=== PATIENT | female | born 1935 | race Caucasian/White ===

== ENCOUNTER 2016-11-08 19:18 | Emergency (ER) | payer OTHER ==
[~2016-11-08 19:18] MED LIST: CALCIUM + D 6001 TAB PO; CLEOCIN HCL150 MG PO; FISH OIL500 MG PO; GLYBURIDE2.5 MG PO; LEVOTHYROXINE0.1 M1 PO; LOSARTAN/HCTZ 100/25; MACROBID 100 M100 MG PO; METFORMIN HYD1000 MG PO; PYRIDIUM200 M1 PO; TYLENOL #31 TAB PO
--- NOTE | 2016-11-08 20:19 | ED UPPER/LOWER EXTREMITY COMPL ---
History of Present Illness General Chief Complaint: Upper Extremity Injury Stated Complaint: BILATERIAL ARM PAIN, S/P FALL 11/05 Source: patient, family Exam Limitations: no limitations Vital Signs & Intake/Output Vital Signs & Intake/Output Vital Signs Date Time Temp Pulse Resp B/P Pulse O2 O2 Flow FiO2 Ox Delivery Rate 11/08 2213 97.2 84 18 180/72 98 Room Air Room Air 11/09 1955 97.0 86 22 190/73 97 ED Intake and Output 11/09 0000 11/08 1200 Intake Total Output Total Balance Patient 183 lb Weight Allergies Coded Allergies: Penicillins (RASH 05/10/16) Sulfa (Sulfonamide Antibiotics) (RASH 05/10/16) Reconcile Medications Calcium/Vitamin D (Calcium + D) 600 MG/200 IU TAB 1 TAB PO BID VITAMIN ( Reported) Glyburide 5 MG TABLET 5 MG PO DAILY SUGAR (Reported) Levothyroxine Sodium 0.1 MG TAB 0.1 MG PO DAILY THYROID (Reported) [LOSARTAN/HCTZ 100/25] (Reported) METFORMIN HCL (Metformin Hydrochloride) 1,000 MG TABLET 1,000 MG PO BID SUGAR (Reported) Nitrofurantoin Monohyd/M-Cryst (Macrobid 100 MG Capsule) 100 MG CAPSULE 1 CAP PO BID cystitis with food Phenazopyridine HCl (Pyridium) 200 MG TABLET 1 TAB PO TID dysuria SALMON OIL/OMEGA-3 FATTY ACIDS (Fish Oil 500 MG Softgel) 500 MG-100 MG CAPSULE 1 TAB PO DAILY VITAMIN (Reported) Triage Note: PER PT GOT UP 0200 ON SUNDAY, FELL IN BR TOOK A LONG TIME FINALLY HAD TO CALL [facility] TO GET HELP GETTING UP, CALLED HE THOUGHT IT WAS A NEW MEDICINE I STARTED {ANTIBIOTIC} FOR SINUS INFECTION. EVERYTHING HURTS STILL DIZZY AND TODAY STARTED WITH A RASH. Triage Nurses Notes Reviewed? yes Onset: Abrupt Duration: day(s): (4) Timing: single episode today HPI: 81-year-old female presents with her daughter for chief complaint of left posterior rib pain, right wrist and hand pain after fall in the bathroom on Sunday morning. She states that she was going to the bathroom when she lost her balance and fell down onto her back. No head trauma or loss of conscious. She is usually fine and they came and lifted her up. She was not transferred to the hospital. This next [facility] and went to the [facility]. Since then she's been having some aches and pains and asked her daughter to bring her in for evaluation tonight. No headache or blurred vision. No change in mental status. No abdominal pain nausea or vomiting. She's been eating and drinking well. Incidentally patient noted to have diffuse rash to thorax which appears to be a drug rash. SHe is at the end of course of bactrim for a sinusitis. Past History Travel History Traveled to [place] past 21 day No Medical History Any Pertinent Medical History? see below for history Neurological: NONE EENT: NONE Cardiovascular: hypertension Respiratory: NONE Gastrointestinal: NONE Hepatic: NONE Renal: NONE Musculoskeletal: NONE Psychiatric: NONE Endocrine: diabetes, hypothyroidism Blood Disorders: NONE Surgical History Surgical History: non-contributory Psychosocial History What is your primary language Hebrew Tobacco Use: Never used Family History Hx Contributory? No Review of Systems Review of Systems Constitutional: Denies: chills, fever. EENTM: Reports: no symptoms. Respiratory: Denies: cough, short of breath. Cardiovascular: Denies: chest pain, palpitations. Gastrointestinal/Abdominal: Denies: abdominal pain. Genitourinary: Reports: no symptoms. Musculoskeletal: Reports: back pain, joint pain, joint swelling, muscle pain, muscle stiffness. Denies: neck pain. Skin: Reports: no symptoms. Neurological/Psychological: Denies: ataxia, confusion, numbness. Hematologic/Endocrine: Denies: bruising, bleeding. Immunological: Reports: no symptoms. All Other Systems: Reviewed and Negative Physical Exam Physical Exam General Appearance: well developed/nourished, alert, awake, mild distress Head: atraumatic Eyes: Bilateral: PERRL, EOMI. Ears, Nose, Throat: normal pharynx, normal ENT inspection, hearing grossly normal Neck: normal inspection, supple Cardiovascular/Respiratory: regular rate/rhythm Peripheral Pulses: 2+ radial (R), 2+ radial (L) Gastrointestinal: SOFT NONTNDER Back: normal inspection Shoulder Left: normal range of motion, normal inspection Shoulder Right: normal range of motion, normal inspection Elbow Left: normal range of motion, normal inspection Elbow Right: normal range of motion, normal inspection Hand Left: normal inspection, normal range of motion Hand Right: normal range of motion, swelling, 1st finger Leg Left: normal range of motion, normal inspection Leg Right: normal range of motion, normal inspection Hip Left: normal range of motion, normal inspection Hip Right: normal range of motion, normal inspection Neurologic/Tendon: normal sensation, normal motor functions, normal tendon functions Skin: intact, normal color, warm/dry, rash (MACULAR/LACY RASH TO THORAX) Lymphatic: no anterior cervical loida Diagram Shoulders Front/Back 1) TENDERNESS TO PALPATION NO BRUISING OR STEPOFF NO CREPITUS Hands Back 1) MILD SWELLING 2) mild swelling, no pain with axial loading Progress Differential Diagnosis: sprain, ICH, RIB FRACTURE, WRIST FX/SPRAIN, HAND FX, THUMB SPRAIN, PTX Plan of Care: Orders Procedure Date/time Status Durable Medical Equipment 11/08 2149 Active EKG 11/[address] HEAD ORDERED FROM TRIAGE. XRAYS, TYLENOL ORDERED. NO ACUTE FX ON XRAY. CT HEAD WNL. RIGHT HAND/WRIST SPLINT ORDERED. PATIENT STABLE FOR DISCHARGE HOME. REITERATED TO PATIENT AND DAUGHTER TO DISCONTINUE BACTRIM A RESULT OF DIFFUSE DRUG RASH. (DONNIE DUBOIS,REN) Diagnostic Imaging: Viewed by Me: Radiology Read, CT Scan. Discussed w/RAD: Radiology Read, CT Scan. Radiology Impression: PATIENT: TONYA SAAVEDRA PRESENT AGE: 81 PATIENT ACCOUNT NO: [id number] : 34 LOCATION: [facility] ORDERING PHYSICIAN: REN FIELDS MD SERVICE DATE: 11/08/16 EXAM TYPE: CAT - CT HEAD WO IV CONTRAST EXAMINATION: CT HEAD WITHOUT CONTRAST CLINICAL INFORMATION: Status post fall with dizziness. COMPARISON: CT brain 03/11/2011. TECHNIQUE: Contiguous axial imaging was performed from the skull base to vertex without intravenous administration of contrast. DLP: 600 mGy-cm FINDINGS: There is no evidence of acute intracranial hemorrhage or territorial infarction. No abnormal mass effect or midline shift is seen. Guillory to white matter differentiation is well preserved. No extra-axial fluid collections are identified. The lateral ventricles are enlarged with mild prominence of cortical sulci. There is a prominent septum cavum pellucidum. There is benign hyperostosis frontalis interna. The osseous structures and soft tissues are normal. There is mild mucoperiosteal thickening right posterior ethmoid sinus. IMPRESSION: No acute intracranial process seen. Suspect mild chronic inflammatory changes right posterior ethmoid sinus. DICTATED BY: VICK MD,VEENA DATE/TIME DICTATED:2037 DIRECTOR OF EXHIBIT DEVELOPMENT:WHITLEY DATE/TIME TRANSCRIBED:11/08/162037 CONFIDENTIAL, DO NOT COPY WITHOUT APPROPRIATE AUTHORIZATION. <Electronically signed in Other Vendor System> SIGNED BY: VEENA HICKMAN MD 11/08/162045, PATIENT: TONYA SAAVEDRA PRESENT AGE: 81 PATIENT ACCOUNT NO: [id number] : 34 LOCATION: [facility] ORDERING PHYSICIAN: REN FIELDS MD SERVICE DATE: 11/08/16 EXAM TYPE: RAD - XRY-HAND, RIGHT; XRY- RIBS UNILATERAL-LEFT; XRY-WRIST COMPLETE-RIGHT EXAMINATION: LEFT RIBS, RIGHT WRIST AND RIGHT HAND. CLINICAL INFORMATION: Status post fall on Sunday morning. Left chest pain. COMPARISON: None TECHNIQUE: Chest PA and 3 views left RIBS. 4 views right wrist. 3 views right hand. FINDINGS: CHEST AND LEFT RIBS: Both lungs are fairly well-expanded and clear of acute process. The heart size and pulmonary vascularity is normal. Multiple views of left ribs reveal no visible rib fracture. No bony abnormality noted. RIGHT WRIST: No visible acute fracture or dislocation seen. There is loss of joint space with periarticular spurring first carpometacarpal joint and scaphoid-trapezial joint. The soft tissues are normal. RIGHT HAND: There is no visible acute fracture or dislocation seen. There is periarticular marginal osteophytes PIP joint first through fifth digits with mild osteopenia. Loss of PIP and DIP joint space is present. No acute fracture seen. IMPRESSION: Unremarkable chest and left rib exam. Especially no left rib fracture seen. 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 There is no acute fracture or dislocation seen involving the right hand or the right wrist. DICTATED BY: VEENA HICKMAN MD DATE/TIME DICTATED:11/08/162135 DIRECTOR OF EXHIBIT DEVELOPMENT:WHITLEY DATE/ TIME TRANSCRIBED:11/08/162135 CONFIDENTIAL, DO NOT COPY WITHOUT APPROPRIATE AUTHORIZATION. <Electronically signed in Other Vendor System> SIGNED BY: VEENA HICKMAN MD 11/08/162144 Departure Departure Time of Disposition: 2149 Disposition: HOME OR SELF CARE Condition: Stable Clinical Impression Primary Impression: Contusion Secondary Impressions: Drug-induced skin rash, Sprained thumb Referrals: VINAYAK DUBOIS,RAJI Nolen (PCP/Family) Additional Instructions: Take tylenol as needed for pain. Follow up with your doctor in the office. Return as needed. Departure Forms: Customer Survey General Discharge Information Procedures Splinting Location: RIGHT HAND/WRIST SPLINT Splint Applied By: splint applied by other Pre-Proc Neuro Vasc Exam: normal Post-Proc Neuro Vasc Exam: normal
--- NOTE | 2016-11-08 20:46 | CT SCAN REPORT ---
EXAMINATION: CT HEAD WITHOUT CONTRAST CLINICAL INFORMATION: Status post fall with dizziness. COMPARISON: CT brain 03/11/2011. TECHNIQUE: Contiguous axial imaging was performed from the skull base to vertex without intravenous administration of contrast. DLP: 600 mGy-cm FINDINGS: There is no evidence of acute intracranial hemorrhage or territorial infarction. No abnormal mass effect or midline shift is seen. Guillory to white matter differentiation is well preserved. No extra-axial fluid collections are identified. The lateral ventricles are enlarged with mild prominence of cortical sulci. There is a prominent septum cavum pellucidum. There is benign hyperostosis frontalis interna. The osseous structures and soft tissues are normal. There is mild mucoperiosteal thickening right posterior ethmoid sinus. IMPRESSION: No acute intracranial process seen. Suspect mild chronic inflammatory changes right posterior ethmoid sinus.
--- NOTE | 2016-11-08 21:45 | RADIOLOGY REPORT ---
EXAMINATION: LEFT RIBS, RIGHT WRIST AND RIGHT HAND. CLINICAL INFORMATION: Status post fall on Sunday morning. Left chest pain. COMPARISON: None TECHNIQUE: Chest PA and 3 views left RIBS. 4 views right wrist. 3 views right hand. FINDINGS: CHEST AND LEFT RIBS: Both lungs are fairly well-expanded and clear of acute process. The heart size and pulmonary vascularity is normal. Multiple views of left ribs reveal no visible rib fracture. No bony abnormality noted. RIGHT WRIST: No visible acute fracture or dislocation seen. There is loss of joint space with periarticular spurring first carpometacarpal joint and scaphoid-trapezial joint. The soft tissues are normal. RIGHT HAND: There is no visible acute fracture or dislocation seen. There is periarticular marginal osteophytes PIP joint first through fifth digits with mild osteopenia. Loss of PIP and DIP joint space is present. No acute fracture seen. IMPRESSION: Unremarkable chest and left rib exam. Especially no left rib fracture seen. 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 There is no acute fracture or dislocation seen involving the right hand or the right wrist.
[2016-11-08 22:14] VITALS: BP 180/72
== END 2016-11-08 22:15 ==
LOC: ERH 19:18
DX: T14.8 Other injury of unspecified body region (principal); S63.601A Unspecified sprain of right thumb, initial encounter; L27.0 Generalized skin eruption due to drugs and medicaments taken internally; T50.905A Adverse effect of unspecified drugs, medicaments and biological substances, initial encounter; W19.XXXA Unspecified fall, initial encounter; Y93.9 Activity, unspecified; Y92.002 Bathroom of unspecified non-institutional (private) residence as the place of occurrence of the external cause
CPT/HCPCS: 71100-LT; 73110-RT; 73130-RT; 93005; 93010